=== PATIENT | female | born 1990 | race Two or more races ===

== ENCOUNTER 2017-04-04 23:00 | Emergency (ER) | payer MEDICAID ==
[~2017-04-04] VITALS: Ht 167.6 cm; Wt 49.9 kg
--- NOTE | 2017-04-04 23:35 | NUR ---
BB SELF FROM HOME WITH C/O OF ABD PAIN X1 DAY 08/22, GENERALIZED, NONE RADIATING. PT REFUSED TO BE PALPATED IN THE ABD REGION. SKIN PINK AND WARM. PT IS AAOX4. RESP EVEN AND NONE LABORED. NO S/S OF ACUTE DISTRESS NOTED. VSS. PT GOWNED AND PLACED ON MONITOR. URINE SPECIMEN WAS COLLECTED. AWAITING MD FOR EVAL.
[2017-04-04] MEDS ORDERED: ONDANSETRON HCL/PF 4 MG/2 ML VIAL ONE (23:38)
[2017-04-04] MEDS ORDERED: HYDROMORPHONE INJ 0.5 MG/0.5 ML SYRINGE ONE (23:38)
[2017-04-04 23:54] LABS: BASOPHILS # (AUTO) 0.1 /CMM (0.0-0.2); BASOPHILS % (AUTO) 0.4 % (0.0-2.0); EOSINOPHILS # (AUTO) 0.2 /CMM (0.0-0.7); EOSINOPHILS % (AUTO) 1.9 % (0.0-6.0); HEMATOCRIT 41 % (33-45); HEMOGLOBIN 14.2 g/dL (11.5-14.8); LYMPHOCYTES # (AUTO) 2.4 /CMM (0.8-4.8); LYMPHOCYTES % (AUTO) 19.5 % (20.0-44.0); MEAN CORPUSCULAR HEMOGLOBIN 31 PG (26.0-33.0); MEAN CORPUSCULAR HGB CONC 34 g/dl (31.0-36.0); MEAN CORPUSCULAR VOLUME 90 fL (82-100); MONOCYTES # (AUTO) 0.5 /CMM (0.1-1.30); NEUTROPHILS # (AUTO) 9.3 /CMM (1.8-8.9); NEUTROPHILS % (AUTO) 74.2 % (43.0-81.0); PLATELET COUNT (AUTO) 265 /CMM (150-450); RDW COEFFICIENT OF VARIATION 12.1 (11.5-15.0); RED BLOOD CELL COUNT(AUTO) 4.57 MIL/uL (4.0-5.2); WHITE BLOOD COUNT (AUTO) 12.5 K/uL (4.3-11.0)
[2017-04-05] MEDS ORDERED: IV NS 0.9% 1,000 ML BAG IV ONE
[2017-04-05] MEDS ORDERED: ONDANSETRON HCL/PF 4 MG/2 ML VIAL IVP ONE
[2017-04-05] MEDS ORDERED: HYDROMORPHONE INJ 2 MG/ML DISP.SYRIN IV ONE
[2017-04-05 00:06] LABS: CALCIUM, SERUM 9.6 mg/dL (8.5-10.1); CREATININE 0.8 mg/dL (0.6-1.3); POTASSIUM 3.3 mmol/L (3.5-5.1)
--- NOTE | 2017-04-05 00:10 | NUR ---
PT TO CT
[2017-04-05 00:12] LABS: ALBUMIN 4.1 g/dL (3.4-5.0); BILIRUBIN,DIRECT 0.2 mg/dL (0.0-0.2); BILIRUBIN,TOTAL 1.1 mg/dL (0.2-1.0); INR 1.01 (0.87-1.13); TOTAL PROTEIN, SERUM 8.5 g/dL (6.4-8.2)
--- NOTE | 2017-04-05 00:22 | NUR ---
PT BACK FROM CT
--- NOTE | 2017-04-05 00:48 | NUR ---
PUBLIC WEIGHER BEDSIDE
[2017-04-05] MEDS ORDERED: FLUCONAZOLE (100 MG) 100 MG TABLET PO ONE (02:30)
[2017-04-05] MEDS ORDERED: FLUCONAZOLE (100 MG) 100 MG TABLET ONE (02:53)
--- NOTE | 2017-04-05 03:20 | NUR ---
IV removed. Catheter intact and site benign. Pressure and 4x4 applied to site. No bleeding noted. Patient discharged to home in stable condition. Written and verbal after care instructions given. Patient verbalizes understanding of instruction. ambulatory with a steady gait noted. pt aaox4 no acute distress noted, resp even and unlabored.
[2017-04-05 03:21] VITALS: BP 127/62
== END 2017-04-05 03:22 | disposition home or self-care (01) ==
LOC: ER 23:03
DX: R10.9 Unspecified abdominal pain (principal); R11.0 Nausea; Z88.6 Allergy status to analgesic agent
CPT/HCPCS: 36415; 76705-TC; 76856-TC; 80048-TC; 80076-TC; 83690-TC; 84703-TC; 85025-TC; 85730-TC; A4606; J2405; Z7610